=== PATIENT | female | born 1965 | race Two or more races ===

== ENCOUNTER 2019-09-04 09:31 | Inpatient (IN) | payer OTHER ==
[~2019-09-04] VITALS: Ht 157.5 cm; Wt 74.4 kg
[2019-09-04] MEDS ORDERED: SYNTHROID75 MCG (09:43)
[2019-09-04] MEDS ORDERED: DDAVP0.2 MG (09:44)
[2019-09-04] MEDS ORDERED: MILLIPRED5 MG (09:44)
[2019-09-04] MEDS ORDERED: COZAAR25 MG (09:45)
[2019-09-04] MEDS ORDERED: LIPITOR20 MG (09:45)
--- NOTE | 2019-09-04 09:46 | NUR ---
SE RECIBE PTE. FEMENINA EN SILLA DE YUEN EN COMPANIA DE FAMILIAR PTE. REFIERE TENER CELULITIS EN PIERNA RT. DESDE EDGARDO. SE OBSERVA PIERNA CALIENTE AL TACTO Y AAREA ROJISA Y CON DOLOR AL TACTO. SE PASA A AREA DE OBSERVACION.
--- NOTE | 2019-09-04 10:12 | NUR ---
SE REALIZA EKG A PTE. YA QUE PRESENTO PULSO EN 136.
[2019-09-04] MEDS ORDERED: RAYOS5 MG PO (15:37)
[2019-09-19] MEDS ORDERED: LIPITOR20 MG PO (13:45)
[2019-09-19] MEDS ORDERED: INTESTINEX680 M1 PO (13:45)
[2019-09-19] MEDS ORDERED: LEVOTHYROXINE75 MCG PO (13:45)
[2019-09-19] MEDS ORDERED: PREDNISONE 5MG PO ×2 (13:46)
== END 2019-09-19 14:27 | disposition home or self-care (01) | DRG 603 ==
LOC: ER 09:31 → SURH 13:45 → MEDJ 13:45 → SURH 09-07 11:33
PROVIDERS: ADMIT Internal Medicine
PROC: 4A12X4Z Monitoring of Cardiac Electrical Activity, External Approach (ICD-10-PCS; 2019-09-04)
PROC: 8E0ZXY6 Isolation (ICD-10-PCS; principal; 2019-09-05)
PROC: B43 Imaging, Lower Arteries, Magnetic Resonance Imaging (MRI) (ICD-10-PCS; 2019-09-08)
PROC: B44HZZZ Ultrasonography of Bilateral Lower Extremity Arteries (ICD-10-PCS; 2019-09-14)
DX: L03.115 Cellulitis of right lower limb (principal); E27.49 Other adrenocortical insufficiency; E23.2 Diabetes insipidus; L02.415 Cutaneous abscess of right lower limb; I10 Essential (primary) hypertension; L20.9 Atopic dermatitis, unspecified; I95.9 Hypotension, unspecified; E89.0 Postprocedural hypothyroidism; Z20.828 Contact with and (suspected) exposure to other viral communicable diseases
CPT/HCPCS: 73722